=== PATIENT | female | born 1945 | race Caucasian/White ===

== ENCOUNTER 2016-11-25 11:00 | Outpatient (CLI) | payer OTHER | END 2016-11-25 19:11 | disposition home or self-care (01) | LOC: SMA 11:00 | PROVIDERS: ATTEND Family Medicine | DX: Z12.31 Encounter for screening mammogram for malignant neoplasm of breast (principal) | CPT/HCPCS: G0202 ==

== ENCOUNTER 2017-11-30 10:10 | Outpatient (CLI) | payer OTHER | END 2017-11-30 20:12 | disposition home or self-care (01) | LOC: SMA 10:10 | PROVIDERS: ATTEND Family Medicine | DX: Z12.31 Encounter for screening mammogram for malignant neoplasm of breast (principal) | CPT/HCPCS: 77067 ==

== ENCOUNTER 2019-01-01 10:51 | Outpatient (CLI) | payer OTHER | END 2019-01-01 20:57 | disposition home or self-care (01) | LOC: SMA 10:51 | PROVIDERS: ATTEND Family Medicine | DX: Z12.31 Encounter for screening mammogram for malignant neoplasm of breast (principal) | CPT/HCPCS: 77067 ==

== ENCOUNTER 2020-05-15 10:50 | Outpatient (CLI) | payer OTHER | END 2020-05-15 19:49 | disposition home or self-care (01) | LOC: SMA 10:50 | PROVIDERS: ATTEND Family Medicine | DX: Z12.31 Encounter for screening mammogram for malignant neoplasm of breast (principal) | CPT/HCPCS: 77067 ==

== ENCOUNTER 2021-08-03 09:44 | Outpatient (CLI) | payer OTHER | END 2021-08-03 20:44 | disposition home or self-care (01) | LOC: SMA 09:44 | PROVIDERS: ATTEND Family Medicine | DX: Z12.31 Encounter for screening mammogram for malignant neoplasm of breast (principal) | CPT/HCPCS: 77067 ==

== ENCOUNTER 2023-07-28 10:26 | Outpatient (CLI) | payer OTHER | END 2023-07-28 18:37 | disposition home or self-care (01) | LOC: SMA 10:26 | PROVIDERS: ATTEND Nurse Practitioner Family | DX: Z12.31 Encounter for screening mammogram for malignant neoplasm of breast (principal) | CPT/HCPCS: 77067 ==